=== PATIENT | female | born 1990 | race Caucasian/White ===

== ENCOUNTER 2024-04-26 16:01 | Inpatient (IN) ==
[2024-04-26 17:14] LABS: Appearance Urine Slightly Cloudy (Clear)
[2024-04-26 17:25] LABS: Basophils # (auto) 0.04 K/uL (0.00-0.20); Basophils % (auto) 0.5 %; Eosinophils # (auto) 0.14 K/uL (0.00-0.50); Eosinophils % (auto) 1.9 %; Hematocrit (blood only) 42.4 % (37.0-47.0); Hemoglobin 14.3 g/dl (12.0-16.0); Immature Granulocytes # (auto) 0.02 K/uL (0.01-0.20); Immature Granulocytes % (auto) 0.3 %; Lymphocytes # (auto) 2.39 K/uL (1.20-3.40); Lymphocytes % (auto) 31.7 %; Mean Corpuscular Hemoglobin 27.3 pg (25.0-34.0); Mean Corpuscular Hgb Conc 33.7 g/dL (32.0-36.0); Mean Corpuscular Volume 80.9 fL (80.0-100.0); Mean Platelet Volume 10.4 fL (9.4-12.4); Monocytes # (auto) 0.51 K/uL (0.11-0.59); Monocytes % (auto) 6.8 %; Neutrophils # (auto) 4.44 K/uL (1.40-6.50); Neutrophils % (auto) 58.8 %; Platelet Count 324 K/uL (130-400); RDW Coefficient of Variation 12.9 % (11.5-14.5); RDW Standard Deviation 37.6 fL (36.4-46.3); Red Blood Count 5.24 M/uL (4.20-5.40); White Blood Count 7.54 K/ul (4.8-10.8)
[2024-04-26 17:28] LABS: RBC Urine Automated 0-2 /hpf (0-4); WBC Urine Automated 0-5 /hpf (0-5)
[2024-04-26 17:29] LABS: Bacteria Urine Automated None Seen (Negative); Cast Urine Automated 0-2 /lpf (0-5)
[2024-04-26 17:39] LABS: Albumin Globulin Ratio 1.4 (0.9-2); Albumin Level 4.6 gm/dl (3.4-5.0); BUN Creatinine Ratio 20.5 (10-20); Bilirubin,Total 0.4 mg/dl (0.2-1.0); Calcium 9.2 mg/dl (8.6-10.3); Creatinine Clr Calc Pharmacy 118.2 ml/min; Globulin 3.3 gm/dl (2.5-4.0); Potassium 3.8 mmol/L (3.5-5.1); Total Protein 7.9 gm/dl (6.0-8.3)
[2024-04-26] MEDS: AMPICILLIN/SULBACTAM SOD 3,000 MG/100 ML BAG IV STA (17:57)
[2024-04-26] MEDS ORDERED: ONDANSETRON INJ 2 MG/ML 2 ML VIAL IV PRN (18:00)
[2024-04-26] MEDS ORDERED: POLYETHYLENE (MIRALAX) 17 GM PACK PO PRN (18:00)
--- NOTE | 2024-04-26 18:21 | History & Physical Report ---
Date of Service April 26, 2024 Assessment & Plan (1) UTI (urinary tract infection): Plan This is a 34 year old female with past medical history of OCD, ADHD, umbilical hernia, PTSD who presented to the ED referred by urology for a resistant strand of UTI. #UTI UC from 04/17 + for corynebacterium rigelii, enterococcus faecalis, allosardovia omnicolens, and Morganella morganii CBC/BMP stable. Sensitivities reveal only sensitive to Unasyn vs Doxycycline. Per patient she is unable to have doxycycline due to hx of intracranial HTN. ED discussed w/ pharmacy who recommended Unasyn Discussed w/ urology that Unasyn is able to cover 3 species but doxycycline is the only abx to cover enterococcus. Also discussed that patient does not have confirmed intracranial hypertension. Reached out to Neurology who recommended to treat the UTI w/ doxycycline and no monitoring was necessary. Start Doxycycline, if patient develops any neurological symptoms including headache, changes in vision/hearing please then discontinue abx. Continue IV Unasyn on admission Urology consulted, appreciate recommendations. Will likely have cystoscopy inpatient. #Chronic conditions: Mental health: Buspirone/Guanfacine Hypothyroidism: Levothyroxine Recent TSH 04/18 WNL DVT prophylaxis: encourage ambulation, hold chemical in event of procedure Code: full Case discussed w/ Dr. Sanchez at time of admission. History of Present Illness Primary Care Provider: LANCE Linton This is a 34 year old female with past medical history of OCD, ADHD, umbilical hernia, PTSD who presented to the ED referred by urology for a resistant strand of UTI. The patient was seen and examined this evening. Patient reports that she has had UTI symptoms for the last 2 years. She has followed routinely with urology. She reports that within the last week her symptoms have worsened. She has used Azo to aide with her symptoms. Her biggest symptoms are urinary urgency and burning. She denies any hematuria. She denies any low back pain. She admits to discomfort in her suprapubic region. She denies nausea, vomiting, chest pain, shortness of breath. Denies any lower extremity edema. Scanned urine culture from 04/17 reveals patient grew Corynebacterium riegelii, enterococcus faecalis, allosardovia omnicolens, morganella morganii. The patient has a hx of intracranial HTN and is unable to have doxycycline. While in the ED, patient had CBC/BMP that appeared stable. She was started on Unasyn. Allergies Allergy/AdvReac Type Severity Reaction Status Date / Time adhesive Allergy Intermediate Rash Verified 04/26/24 17:56 nitrofurantoin AdvReac Severe Intracranial Verified 04/26/24 17:56 Hypertension Tetracyclines AdvReac Severe Intracranial Verified 04/26/24 17:56 Hypertension naldixic acid AdvReac Severe Intracranial Uncoded 04/26/24 17:56 Hypertension Home Medications Medication Instructions Recorded Confirmed Type levothyroxine 150 mcg tablet 150 mcg PO QAM 12/19/21 04/26/24 History Medical Marijuana 1 dose inhalation DAILY PRN ptsd 01/07/23 04/26/24 History lactobacillus combination no.4 3 3,000 mmu cells PO QDL 04/16/23 04/26/24 History billion cell capsule (Probiotic) cholecalciferol (vitamin D3) 50 50 mcg PO QDL 10/06/23 04/26/24 History mcg (2,000 unit) capsule fluticasone propionate 50 2 spray intranasal DAILY #16 grams 03/14/24 04/26/24 Rx mcg/actuation nasal spray,suspension ascorbic acid 100 mg-zinc sulfate 1 tab PO DAILY 03/21/24 04/26/24 History 200 mg tablet cranberry 500 mg capsule 500 mg PO DAILY 03/21/24 04/26/24 History hydroxyzine HCl 25 mg tablet 25 mg PO HS PRN anxiety, insomnia 04/07/24 04/26/24 Rx #30 tabs buspirone 10 mg tablet 10 mg PO TID 04/26/24 04/26/24 History elderberry fruit 350 mg capsule 350 mg PO DAILY 04/26/24 04/26/24 History guanfacine 1 mg tablet,extended 1 mg PO HS 04/26/24 04/26/24 History release 24 hr Past Med/Surg History Problem List (Updated 04/27/24 @ 17:22 by Tala Webster MD) Fear of anesthetic Fear associated with healthcare Adjustment disorder with anxiety Generalized anxiety disorder with panic attacks Urinary tract infection (Acute) Bilateral tinnitus Allergy to tetracycline group Enterococcus faecalis infection Pelvic pain (Chronic) Vitamin D deficiency Tinnitus OCD (obsessive compulsive disorder) Attention and concentration deficit Umbilical hernia Post traumatic stress disorder Medical History Medical marijuana use UTI (urinary tract infection) [facility] ER evaluation 03/27/24 for UTI, surgeon's office made aware Kidney stone on left side Restless leg Arthritis Hx of papilledema Hx with idiopathic intracranial hypertension No current issues Idiopathic intracranial hypertension Follows [facility] Neuro Dr. Rodrigues>"in remission" Hypothyroidism GERD (gastroesophageal reflux disease) Duplicated left renal collecting system Follows [facility] Urology Decreased hearing L > R History of asthma Childhood PTSD (post-traumatic stress disorder) Anxiety and depression Surgical History Family history of reaction to anesthesia Mother- "stopped breathing and required tube for short time" during EGD, limited further details H/O umbilical hernia repair (12/06/23) Robotic Assisted Laparoscopic Umbilical Hernia Repair with Mesh Adverse effect of anesthesia Panic attack with anesthesia with lap shamar Hx of cholecystectomy (2022) Hx of cervical biopsy benign [place] teeth extracted History of tonsillectomy Family History Grandfather (Maternal) Lung cancer Cancer Mother Hypertension Stroke Clotting disorder Father ADHD Grandmother (Paternal) COPD (chronic obstructive pulmonary disease) Grandfather (Paternal) Stroke Grandfather (Paternal) No problems noted. Grandmother (Maternal) Stroke Denies family history of Ovarian cancer Prostate cancer Myocardial infarction Breast cancer Colorectal cancer Social History Smoking Status: Never smoker Tobacco Type: Declines Age Started Using Tobacco: 16; packs per day: 0.01; Cigarettes Per Day: 2 cigs q few months (only smokes when drinking); Second Hand Exposure: No; Do You Dip or Chew Tobacco: No; Tobacco Cessation Education Requested by Patient: No Hx Alcohol Use: Yes Alcohol type: beer and wine Alcohol Intake Frequency: Monthly or Less Hx Substance Use: Yes Prescribed Medications: Marijuana Non-Prescribed Medications: Crack / Cocaine and Hallucinogens Last Used Substance: Days (ago) Substance Use Type Other:: medical marijuana Preferred Language: [place] Communication Ability: Effective Visual Impairment: No Limitations Hearing Ability: Normal Boat Ride Operator Required: No Beliefs That Will Affect Care: None marital status: Single Current Living Situation: Significant Other current occupational status: employed 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 How many Children do You have: 0 Other Information That Helps Us Care for You: No Feels Safe at Home: Yes Safety Concerns: Feels Safe At This Time Diet: ideal protein, low carbohydrate and regular Diet Comment: regular caffeine: No during the past year weight has: remained stable Dental Care, Regularly: Yes Physical Activity Frequency: Other Seatbelt Use: always Sunscreen Use: Yes Assistive Devices: None Physical Exam Constitutional: WD/WN, vitals as above Eyes: PERRL, conjunctivae normal, anicteric sclerae Respiratory: normal respiratory effort, lungs clear to auscultation Cardiovascular: RRR, no murmur, no edema Gastrointestinal (Abdomen): normal bowel sounds, soft, nontender, no hepatosplenomegaly negative CVA tenderness Musculoskeletal: moves all extremities Psychiatric: A+Ox3, euthymic affect Results & Data Results & Data Vital Signs (Past 12 Hours) Vital Signs Temp Pulse Resp BP Pulse Ox O2 Del Method 04/26/24 16:31 36.7 C 93 H 20 140/82 98 Room Air Supervising Physician Co-Signing Physician Notes I personally saw and examined the patient. I independently reviewed the labs, EKG, imaging, problem list, medication list, past medical history and family history. I verified all pittman points and agree with Fabiana Green PA-C with the following exceptions and/or additions: 34 year old female presents to the ER with ongoing urine symptoms, urine culture positive as an outpatient. O/E HS RRR, no murmurs, Chest CTAB, Abdo SNT, no CVA tenderness A/P UTI - IV doxycycline per urology recommendation pending cystoscopy PG Care Time/CCT Total # of Minutes Spent Total Time Spent with Patient: Total time spent is greater than 50% in coordination of care (as documented) at patient's floor/unit and/or counseling patient: Coding Level of Care Code 67396 INT INP/OBS CARE MIN Diagnoses UTI (urinary tract infection) N39.0
--- NOTE | 2024-04-26 18:23 | Emergency Department Note ---
History of Present Illness General Chief Complaint: Urinary Symptoms Stated Complaint: REF BY DOC,ANTIBIOTIC,UTI Time Seen by Provider: 04/26/24 16:47 History of Present Illness Provider Complaint: + abnormal lab Returns today for: + called because of abnormal lab/test Description of abnormal result: Positive urine culture. Home Medications Medication Instructions Recorded Confirmed Type levothyroxine 150 mcg tablet 150 mcg PO QAM 12/19/21 04/26/24 History Medical Marijuana 1 dose inhalation DAILY PRN ptsd 01/07/23 04/26/24 History lactobacillus combination no.4 3 3,000 mmu cells PO QDL 04/16/23 04/26/24 History billion cell capsule (Probiotic) cholecalciferol (vitamin D3) 50 50 mcg PO QDL 10/06/23 04/26/24 History mcg (2,000 unit) capsule fluticasone propionate 50 2 spray intranasal DAILY #16 grams 03/14/24 04/26/24 Rx mcg/actuation nasal spray,suspension ascorbic acid 100 mg-zinc sulfate 1 tab PO DAILY 03/21/24 04/26/24 History 200 mg tablet cranberry 500 mg capsule 500 mg PO DAILY 03/21/24 04/26/24 History hydroxyzine HCl 25 mg tablet 25 mg PO HS PRN anxiety, insomnia 04/07/24 04/26/24 Rx #30 tabs buspirone 10 mg tablet 10 mg PO TID 04/26/24 04/26/24 History elderberry fruit 350 mg capsule 350 mg PO DAILY 04/26/24 04/26/24 History guanfacine 1 mg tablet,extended 1 mg PO HS 04/26/24 04/26/24 History release 24 hr Allergies Allergy/AdvReac Type Severity Reaction Status Date / Time adhesive Allergy Intermediate Rash Verified 04/26/24 17:56 nitrofurantoin AdvReac Severe Intracranial Verified 04/26/24 17:56 Hypertension Tetracyclines AdvReac Severe Intracranial Verified 04/26/24 17:56 Hypertension naldixic acid AdvReac Severe Intracranial Uncoded 04/26/24 17:56 Hypertension Past Med/Surg History Problem List (Updated 04/26/24 @ 18:31 by Sandeep Prasad MD) Urinary tract infection (Acute) Bilateral tinnitus Allergy to tetracycline group Enterococcus faecalis infection Pelvic pain (Chronic) Vitamin D deficiency Tinnitus OCD (obsessive compulsive disorder) Attention and concentration deficit Umbilical hernia Post traumatic stress disorder Medical History Medical marijuana use UTI (urinary tract infection) [facility] ER evaluation 03/27/24 for UTI, surgeon's office made aware Kidney stone on left side Restless leg Arthritis Hx of papilledema Hx with idiopathic intracranial hypertension No current issues Idiopathic intracranial hypertension Follows [facility] Neuro Dr. Rodrigues>"in remission" Hypothyroidism GERD (gastroesophageal reflux disease) Duplicated left renal collecting system Follows [facility] Urology Decreased hearing L > R History of asthma Childhood PTSD (post-traumatic stress disorder) Anxiety and depression Surgical History Family history of reaction to anesthesia Mother- "stopped breathing and required tube for short time" during EGD, limited further details H/O umbilical hernia repair (12/06/23) Robotic Assisted Laparoscopic Umbilical Hernia Repair with Mesh Adverse effect of anesthesia Panic attack with anesthesia with lap shamar Hx of cholecystectomy (2022) Hx of cervical biopsy benign [place] teeth extracted History of tonsillectomy Family History Grandfather (Maternal) Lung cancer Cancer Mother Hypertension Stroke Clotting disorder Father ADHD Grandmother (Paternal) COPD (chronic obstructive pulmonary disease) Grandfather (Paternal) Stroke Grandfather (Paternal) No problems noted. Grandmother (Maternal) Stroke Denies family history of Ovarian cancer Prostate cancer Myocardial infarction Breast cancer Colorectal cancer Social History Smoking Status: Current some day smoker Tobacco Type: Cigarettes Age Started Using Tobacco: 16; packs per day: 0.01; Cigarettes Per Day: 2 cigs q few months (only smokes when drinking); Second Hand Exposure: No; Do You Dip or Chew Tobacco: No; Hx Alcohol Use: Yes Alcohol type: beer, wine and hard liquor Alcohol Intake Frequency: Monthly or Less Preferred Language: Uzbek Communication Ability: Effective Visual Impairment: No Limitations Hearing Ability: Normal Bag Machine Helper Required: No Beliefs That Will Affect Care: None marital status: Single Current Living Situation: Significant Other current occupational status: employed 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 How many Children do You have: 0 Feels Safe at Home: Yes Diet: ideal protein, low carbohydrate and regular Diet Comment: regular caffeine: No during the past year weight has: remained stable Dental Care, Regularly: Yes Physical Activity Frequency: Other Seatbelt Use: always Sunscreen Use: Yes Assistive Devices: Glasses Physical Exam 2 Vital Signs: Vital Signs - 24 hr 04/26/24 16:31 Temperature 36.7 C Temperature Source Temporal Artery Sc an Pulse Rate 93 H Respiratory Rate 20 Blood Pressure 140/82 Blood Pressure Anh n 101 Pulse Oximetry 98 Oxygen Delivery Me thod Room Air Sepsis Recent Feve r Within 48 Hours No Sepsis New/Unexpla ined Change in Men tanna Status N/A Sepsis Action Take n by Nursing No Action Required Physical Exam: Physical Exam GENERAL: oriented to person, place, and time. appears well-developed and well- nourished. HENT: Exam performed. - Head: Normocephalic and atraumatic. EYES: Conjunctivae and EOM are normal. Right eye exhibits no discharge. Left eye exhibits no discharge. No scleral icterus. NECK: Normal range of motion. Neck supple. No JVD present. CV: Normal rate, regular rhythm, normal heart sounds and intact distal pulses. There is no peripheral edema. Palpable radial pulses bue. PULM/CHEST: Effort normal and breath sounds normal. No respiratory distress. No stridor. no wheezes. no rales. ABD: The abdomen is soft. There is no tenderness. NEURO: Motor and sensation grossly intact. SKIN: Skin is warm and dry. He is not diaphoretic. PSYCH: normal mood and affect. Behavior is normal. Judgment and thought content normal. Course Course 164: The patient was evaluated in room D1A. A complete history and physical exam was performed Administered Medications Discontinued Medications Ampicillin Sodium/Sulbactam Sodium (Unasyn) 3,000 mg in 100 mls @ 200 mls/hr IV NOW STA Stop: 04/26/24 17:52 Last Admin: 04/26/24 17:57 Dose: 200 mls/hr Documented By: JOHN Medical Decision Making Laboratory Data Attestation: I reviewed the patient's lab results. 04/26/24 16:59 04/26/24 16:59 Lab Results 04/26/24 04/26/24 Range/Units 16:43 16:59 WBC 7.54 (4.8-10.8) K/ul RBC 5.24 (4.20-5.40) M/uL Hgb 14.3 (12.0-16.0) g/dl Hct 42.4 (37.0-47.0) % MCV 80.9 (80.0-100.0) fL MCH 27.3 (25.0-34.0) pg MCHC 33.7 (32.0-36.0) g/dL RDW Std Deviation 37.6 (36.4-46.3) fL RDW Coeff of Omi 12.9 (11.5-14.5) % Plt Count 324 (130-400) K/uL MPV 10.4 (9.4-12.4) fL Immature Gran % (Auto) 0.3 % Neut % (Auto) 58.8 % Lymph % (Auto) 31.7 % White % (Auto) 6.8 % Eos % (Auto) 1.9 % Baso % (Auto) 0.5 % Neut # (Auto) 4.44 (1.40-6.50) K/uL Lymph # (Auto) 2.39 (1.20-3.40) K/uL White # (Auto) 0.51 (0.11-0.59) K/uL Eos # (Auto) 0.14 (0.00-0.50) K/uL Baso # (Auto) 0.04 (0.00-0.20) K/uL Immature Gran # (Auto) 0.02 (0.01-0.20) K/uL Sodium 138 (136-145) mmol/L Potassium 3.8 (3.5-5.1) mmol/L Chloride 106 (98-107) mmol/L Carbon Dioxide 26 (21-32) mmol/L Anion Gap 6 (3-11) BUN 17 (6-23) mg/dl Creatinine 0.83 (0.6-1.2) mg/dl Est Cr Clr Drug Dosing 118.2 ml/min eGFR 96.00 BUN/Creatinine Ratio 20.5 H (10-20) Glucose 91 (70-99(Fasting)) mg/dl Calcium 9.2 (8.6-10.3) mg/dl Total Bilirubin 0.4 (0.2-1.0) mg/dl AST 15 (13-39) U/L ALT 13 (7-52) U/L Alkaline Phosphatase 75 (34-104) U/L Total Protein 7.9 (6.0-8.3) gm/dl Albumin 4.6 (3.4-5.0) gm/dl Globulin 3.3 (2.5-4.0) gm/dl Albumin/Globulin Ratio 1.4 (0.9-2) Urine Color See Comment Urine Appearance Slightly Cloudy (Clear) Urine pH Not Reportable Ur Specific [place] 1.010 (1.000-1.030) Urine Protein Not Reportable Urine Glucose (UA) Not Reportable Urine Ketones Not Reportable Urine Blood Not Reportable Urine Nitrite Not Reportable Urine Bilirubin Not Reportable Urine Urobilinogen Not Reportable Ur Leukocyte Esterase Not Reportable Urine WBC (Auto) 0-5 (0-5) /hpf Urine RBC (Auto) 0-2 (0-4) /hpf U Hyaline Cast (Auto) 0-2 (0-5) /lpf U Epithel Cells (Auto) 3-5 (0-5) /lpf Urine Bacteria (Auto) None Seen (Negative) MDM Narrative Vital signs stable. There is scant urine culture from guidance UTI from April 19 which grew out Corynebacterium riegelli, enterococcus faecalis, alloscardovia, morganellia, and is only susceptible to Unasyn or doxycycline. Patient states she cannot take doxycycline secondary to her intracranial hypertension and was told to come here to be admitted by the urology team. Patient will be given Unasyn and admitted to the medicine team with urology on consult. Impression & Plan Urinary tract infection Discharge Plan Visit Data Chief Complaint: Urinary Symptoms Stated Complaint: REF BY DOC,ANTIBIOTIC,UTI ED Provider: Sandeep Prasad Discharge Problem: Urinary tract infection Patient Disposition: Admitted As Inpatient Forms Stand Alone Forms: My [facility] Prescriptions Prescriptions: No Action fluticasone propionate 50 mcg/actuation spray,suspension 2 spray intranasal DAILY Qty: 16 2RF Rx Instructions: administer into each nostril hydroxyzine HCl 25 mg tablet 25 mg PO HS PRN (Reason: anxiety, insomnia) Qty: 30 0RF Probiotic 3 billion cell capsule 3,000 mmu cells PO QDL Rx Instructions: administer with a meal cholecalciferol (vitamin D3) 50 mcg (2,000 unit) capsule 50 mcg PO QDL levothyroxine 150 mcg tablet 150 mcg PO QAM Medical Marijuana 1 dose inhalation DAILY PRN (Reason: ptsd) Patient Comments: "Dosed throughout the day" Rx Instructions: Vape Vitamin C with Zinc 100-200 mg Tablet 1 tab PO DAILY cranberry 500 mg Capsule 500 mg PO DAILY Rx Instructions: administer with meals buspirone 10 mg tablet 10 mg PO TID guanfacine 1 mg tablet extended release 24 hr 1 mg PO HS elderberry fruit 350 mg Capsule 350 mg PO DAILY Referrals Referrals: Desmond Rush CRNP [Primary Care Provider] - Discharge Problem: Urinary tract infection Qualifiers: Urinary tract infection type: site unspecified
[2024-04-26] MEDS ORDERED: hydrOXYzine HCl 25 MG TAB PO PRN (19:23)
[2024-04-26] MEDS: DOXYCYCLINE HYCLATE 100 MG in DEXTROSE 5% MINI-B 100 ML IV STA (19:23)
[2024-04-26] MEDS ORDERED: AMPICILLIN/SULBACTAM SOD 3,000 MG/100 ML BAG IV ONE (20:00)
--- NOTE | 2024-04-26 20:10 | Urology Consultation ---
Date of Consultation April 26, 2024 Assessment & Plan (1) Urinary tract infection: The patient has been admitted on the hospitalist service. From a urologic perspective we recommend the following: Patient has been initiated on antibiotics form of Unasyn and doxycycline which should continue Due to the patient's neurologic issues noted in the history of present illness should be monitored as an inpatient was antibiotics are initiated Consideration for performing a cystoscopy while the patient is an inpatient is underway. Dr. Westbrook is noted that he may perform the said procedure on 04/28/2024. If he does plan on going ahead on that they will make the patient n.p.o. after midnight 1 04/27/2024 Additional recommendations with forthcoming based on her clinical course as unfolds History of Present Illness Reason for Consultation: Urinary tract infection Attending Physician: Nikolay Sanchez MD History of Present Illness This is a 34-year-old female who requires admission to [facility] for urinary tract infection with multiple resistances. Patient says that she has been suffering from urinary tract infections since February of this year. Patient says that she experiences lower abdominal/bladder pressure with urinary frequency and some dysuria. She also notes some intermittent left flank pain. She specifically denies any fevers, shakes, or chills. She denies any nausea or vomiting. She denies any hematuria. To the best of her knowledge she has not passed any kidney stones. Because of her urinary tract infection she has tried 3 antibiotics but still has the above-noted symptoms. Since arrival to the hospital labs have been ordered which independent reviewed. CBC revealed white blood cell count, hemoglobin, hematocrit, and platelet count were all normal. Chemistry profile showed sodium and potassium as well as the BUN and creatinine were normal. The patient reportedly had a urine culture from 04/17/2024 which was positive for Enterococcus faecalis, Morganella Morgagni, allosardovia omnicolens, and Corynebacterium. Sensitivities showed that this organism was sensitive to Unasyn and doxycycline. Patient does report a history of idiopathic intracranial hypertension (she said that this is in remission) but inpatient monitoring is required with the initiation of doxycycline as it can reportedly exacerbate this condition. The patient does note that there is been some consideration of performing a cystoscopy to search for anatomical abnormalities that could explain her urinary tract infections. For this reason urology was consulted. At the time of my interview she was resting comfortably in bed and she is in no distress. Allergies Allergy/AdvReac Type Severity Reaction Status Date / Time adhesive Allergy Intermediate Rash Verified 04/26/24 17:56 nitrofurantoin AdvReac Severe Intracranial Verified 04/26/24 17:56 Hypertension Tetracyclines AdvReac Severe Intracranial Verified 04/26/24 17:56 Hypertension naldixic acid AdvReac Severe Intracranial Uncoded 04/26/24 17:56 Hypertension Home Medications Medication Instructions Recorded Confirmed Type levothyroxine 150 mcg tablet 150 mcg PO QAM 12/19/21 04/26/24 History Medical Marijuana 1 dose inhalation DAILY PRN ptsd 01/07/23 04/26/24 History lactobacillus combination no.4 3 3,000 mmu cells PO QDL 04/16/23 04/26/24 History billion cell capsule (Probiotic) cholecalciferol (vitamin D3) 50 50 mcg PO QDL 10/06/23 04/26/24 History mcg (2,000 unit) capsule fluticasone propionate 50 2 spray intranasal DAILY #16 grams 03/14/24 04/26/24 Rx mcg/actuation nasal spray,suspension ascorbic acid 100 mg-zinc sulfate 1 tab PO DAILY 03/21/24 04/26/24 History 200 mg tablet cranberry 500 mg capsule 500 mg PO DAILY 03/21/24 04/26/24 History hydroxyzine HCl 25 mg tablet 25 mg PO HS PRN anxiety, insomnia 04/07/24 04/26/24 Rx #30 tabs buspirone 10 mg tablet 10 mg PO TID 04/26/24 04/26/24 History elderberry fruit 350 mg capsule 350 mg PO DAILY 04/26/24 04/26/24 History guanfacine 1 mg tablet,extended 1 mg PO HS 04/26/24 04/26/24 History release 24 hr Patient History Medical History Medical marijuana use UTI (urinary tract infection) [facility] ER evaluation 03/27/24 for UTI, surgeon's office made aware Kidney stone on left side Restless leg Arthritis Hx of papilledema Hx with idiopathic intracranial hypertension No current issues Idiopathic intracranial hypertension Follows [facility] Neuro Dr. Rodrigues>"in remission" Hypothyroidism GERD (gastroesophageal reflux disease) Duplicated left renal collecting system Follows [facility] Decreased hearing L > R History of asthma Childhood PTSD (post-traumatic stress disorder) Anxiety and depression Surgical History Family history of reaction to anesthesia Mother- "stopped breathing and required tube for short time" during EGD, limited further details H/O umbilical hernia repair (12/06/23) Robotic Assisted Laparoscopic Umbilical Hernia Repair with Mesh Adverse effect of anesthesia Panic attack with anesthesia with lap shamar Hx of cholecystectomy (2022) Hx of cervical biopsy benign [place] teeth extracted History of tonsillectomy Family History Grandfather (Maternal) Lung cancer Cancer Mother Hypertension Stroke Clotting disorder Father ADHD Grandmother (Paternal) COPD (chronic obstructive pulmonary disease) Grandfather (Paternal) Stroke Grandfather (Paternal) No problems noted. Grandmother (Maternal) Stroke Denies family history of Ovarian cancer Prostate cancer Myocardial infarction Breast cancer Colorectal cancer Social History Smoking Status: Current some day smoker Tobacco Type: Cigarettes Age Started Using Tobacco: 16; packs per day: 0.01; Cigarettes Per Day: 2 cigs q few months (only smokes when drinking); Second Hand Exposure: No; Do You Dip or Chew Tobacco: No; Hx Alcohol Use: Yes Alcohol type: beer, wine and hard liquor Alcohol Intake Frequency: Monthly or Less Preferred Language: Cymro Communication Ability: Effective Visual Impairment: No Limitations Hearing Ability: Normal Mixed [employer]rop [employer] 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 Worker Required: No Beliefs That Will Affect Care: None marital status: Single Current Living Situation: Significant Other current occupational status: employed 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 How many Children do You have: 0 Feels Safe at Home: Yes Diet: ideal protein, low carbohydrate and regular Diet Comment: regular caffeine: No during the past year weight has: remained stable Dental Care, Regularly: Yes Physical Activity Frequency: Other Seatbelt Use: always Sunscreen Use: Yes Assistive Devices: Glasses Review of Systems Review of Systems: All systems reviewed & are unremarkable except as noted in HPI & below Physical Exam Constitutional: WD/WN, vitals as above Eyes: Wears glasses ENMT: Ears: no hearing impairment and no external ear abnormality Mouth: no oropharynx abnormality Neck: trachea midline Respiratory: normal respiratory effort; no respiratory distress and no labored breathing Cardiovascular: Rate/Rhythm: regular rate and regular rhythm Gastrointestinal (Abdomen): Soft and nontender to palpation. There is no rigidity. No rebound tenderness or guarding. Musculoskeletal: No calf tenderness Skin: no rashes Neurologic: moves all extremities Psychiatric: A+Ox3, euthymic affect Genitourinary: No CVA tenderness with percussion bilaterally Results & Data Vital Signs (Past 12 Hours) Vital Signs Temp Pulse Pulse Resp BP BP Pulse Ox 04/26/24 19:45 78 17 135/76 96 04/26/24 19:22 72 04/26/24 19:15 65 18 132/78 100 04/26/24 19:09 88 17 132/78 96 04/26/24 16:31 36.7 C 93 H 20 140/82 98 O2 Del Method 04/26/24 19:45 Room Air 04/26/24 19:22 04/26/24 19:15 Room Air 04/26/24 19:09 Room Air 04/26/24 16:31 Room Air PG Care Time/CCT Total # of Minutes Spent Total Time Spent with Patient: Total time spent is greater than 50% in coordination of care (as documented) at patient's floor/unit and/or counseling patient: Coding Level of Care Code 21476 IN/OBS CONSULT LVL 5,80M Diagnoses Urinary tract infection N39.0 Urinary tract infection type: site unspecified (1) Urinary tract infection Urinary tract infection type: site unspecified
[2024-04-26] MEDS: busPIRone 5 MG TAB PO SCH (20:48)
[2024-04-27] MEDS: AMPICILLIN/SULBACTAM SOD 3,000 MG/100 ML BAG IV SCH (00:24)
[2024-04-27] MEDS ORDERED: AMPICILLIN/SULBACTAM SOD 3,000 MG/100 ML BAG IV SCH (02:00)
[2024-04-27] MEDS: KETOROLAC TROMETHAMINE 15 MG/ML VIAL IV PRN (05:27)
[2024-04-27] MEDS: DOXYCYCLINE HYCLATE 100 MG in DEXTROSE 5% MINI-B 100 ML IV SCH (07:32)
[2024-04-27] MEDS: LEVOTHYROXINE SODIUM 150 MCG TABLET PO SCH (07:55)
--- NOTE | 2024-04-27 08:41 | Urology Progress Note ---
Date of Service April 27, 2024 Assessment & Plan (1) Urinary tract infection: (2) Enterococcus faecalis infection: Plan: Follow-up of UTI Outpatient PCR urine culture with resistant Enterococcus and other organisms Patient on Unasyn and Doxycycline per sensitivity data She remains afebrile and hemodynamically stable Plan for cystoscopy tomorrow in OR with Dr. Westbrook as previously discussed Continue supportive care, antibiotics, and monitoring Will make NPO at midnight for procedure will follow Admission and Anticipated Discharge Date Admission Date: April 26, 2024 Subjective Patient awake and resting in bed. Currently feeling comfortable. Reports she had significant left pelvic and flank pain earlier. She had dose of Ketorolac with relief. Continues to have dysuria. No fever or chills. Review of Systems Constitutional: as per Subjective / HPI Genitourinary: as per Subjective / HPI Physical Exam Constitutional: well developed and well nourished; no acute distress Respiratory: normal respiratory effort; no respiratory distress and no labored breathing Gastrointestinal (Abdomen): Inspection/Auscultation: abdomen normal to inspection Musculoskeletal: Head/Neck/Chest: normocephalic Neurologic: moves all extremities and awake Psychiatric: Orientation: alert and oriented x 3 Results & Data Vital Signs (Past 12 Hours) Vital Signs Temp Pulse Resp BP Pulse Ox O2 Del Method 04/27/24 07:30 36.4 C L 74 18 137/92 100 Room Air PG Care Time/CCT Total # of Minutes Spent Total Time Spent with Patient: Total time spent is greater than 50% in coordination of care (as documented) at patient's floor/unit and/or counseling patient: Coding Level of Care Code 33527 SUB INP/OBS CARE 03/18MIN Diagnoses Urinary tract infection N39.0 Urinary tract infection type: site unspecified Enterococcus faecalis infection A49.8 (1) Urinary tract infection Urinary tract infection type: site unspecified
[2024-04-27] MEDS ORDERED: Nursing to Pharmacy Communication SCH (09:30)
[2024-04-27] MEDS: FLUTICASONE PROPIONATE NA SPR 16 GM BTL NAE SCH ×2 (09:53→21:31)
--- NOTE | 2024-04-27 10:18 | Hospitalist Progress Note ---
Date of Service April 27, 2024 Assessment & Plan (1) UTI (urinary tract infection): Plan This is a 34 year old female with past medical history of OCD, ADHD, umbilical hernia, PTSD who presented to the ED referred by urology for a resistant strand of UTI. #UTI UC from 04/17 + for corynebacterium rigelii, enterococcus faecalis, allosardovia omnicolens, and Morganella morganii CBC/BMP stable. Continue IV Unasyn and IV doxycycline. Continue to monitor for MARIEE on doxy given hx of intracranial HTN - patient has been fine thus far Urology consulted - recommending IV abx & cystoscopy 04/28 Toradol/Tylenol prn for pain or fever. #Mental health Patient reports not being able to receive Guanfacine 04/26, unclear as to why. Discussed w/ nurse to communicate patient to receive this medication tonight. Psych consulted/reached out to Liaison, appreciate recs Continue Buspirone & Guanfacine as scheduled. Ativan/hydroxyzine prn if needed. #Chronic conditions: Hypothyroidism: Levothyroxine Recent TSH 04/18 WNL DVT prophylaxis: encourage ambulation, hold chemical in event of procedure Code: full Discussed w/ urology 04/27 that they highly recommend patient remain inpatient for IV doxy, monitoring, and cystoscopy on 04/28. Patient agreeable to stay after hearing those recommendations. Admission and Anticipated Discharge Date Admission Date: April 26, 2024 Subjective Patient seen and examined this morning. patient reports that she is very upset today. Reports she did not receive her Guanfacine last night prior to bed. Reports she uses this medication for her ADHD, Anxiety, insomnia. Reports she did not sleep well. She does not want Ativan to help with her mental health symptoms. She reports that she is having spiraling thoughts and would like to leave the hospital. She did report she had some suprapubic pain and did require a dose of toradol. She reports she is anxi ous she is going to get a headache while on doxycycline but has not had any headache thus far. denies n/v. Discussed w/ urology that there recommendations are she stay in the hospital for IV doxycycline & get a cystoscopy tomorrow in the OR. Discussed this with the patient. She was tearful as she really would prefer to go home but she is agreeable to stay. Discussed w/ her that will ensure she gets her Guanfacine as scheduled prior to bed this evening. Patient also requesting she be evaluated by psych. Consult placed & reached out to Psych liasion Physical Exam Constitutional: WD/WN, vitals as above Eyes: PERRL, conjunctivae normal, anicteric sclerae Respiratory: breathing unlabored Cardiovascular: well perfused Psychiatric: tearful, anxious Results & Data Results & Data Vital Signs (Past 12 Hours) Vital Signs Temp Pulse Resp BP Pulse Ox O2 Del Method 04/27/24 07:30 36.4 C L 74 18 137/92 100 Room Air 04/27/24 07:25 Room Air PG Care Time/CCT Total # of Minutes Spent Total Time Spent with Patient: Total time spent is greater than 50% in coordination of care (as documented) at patient's floor/unit and/or counseling patient: Coding Level of Care Code 72466 SUB INP/OBS CARE 3/50MIN Diagnoses UTI (urinary tract infection) N39.0
[2024-04-27] MEDS: LORazepam 1 MG TAB PO PRN (10:36)
--- NOTE | 2024-04-27 12:41 | Psychiatric Consultation ---
Date of Consultation April 27, 2024 Impression / Recommendations Impression Diagnostically consistent with adjustment disorder with anxiety in context of having to be hospitalized for urinary issues and anticipatory anxiety about upcoming cystoscopy procedure. Acute risk of self-harm is low as denies SI, getting relief from panic attack symptoms from ativan prn, has support of partner. Psychoeducation, validating and discussion of coping skills and distraction strategies reviewed which she found beneficial. Overall, I spent a total of 60 minutes with this case including review of chart records, review of labwork, direct evaluation of the patient at bedside, counseling the patient, discussion of the patient with the Nurse and with the hospitalist provider, discussion with the psychiatric liason during clinical rounds and documentation in the electronic health record. (1) Urinary tract infection: Urinary tract infection type: site unspecified (2) OCD (obsessive compulsive disorder): (3) Generalized anxiety disorder with panic attacks: (4) Adjustment disorder with anxiety: (5) Fear associated with healthcare: (6) Fear of anesthetic: Plan -Agree with use of ativan 1mg po q6h prn for anxiety/panic attacks given difficulty being in the hospital and anticipatory anxiety about urological procedure; could trial if Klonopin if longer duration of action needed -Continue prior to admission medications: Buspar 10mg TID and Guanfacine ER 1mg HS as ordered -Discussed using other coping skills including heating pads, ice pack, fidget items, stress balls, distraction to help cope with situational anxiety and anticipatory fears about anesthesia with procedure -Consider use of topical numbing cream prior to IV placement or other interventions to ease pain when feasible -Ongoing reassurance and support seems to offer significant reduce in distress -Tomorrow AM: Consider early IV placement/ anxiolytic administration if the patient experiences pre-procedure panic. -Restart medications post-procedure as appropriate. Psych History Chief Complaint "[]". History of Present Illness She presents for psychiatric consultation due to significant anxiety and panic symptoms, exacerbated by her current hospitalization for a urinary tract infection (UTI) and upcoming cystoscopy procedure. Her anxiety is heightened by miscommunications with hospital staff, difficulties adjusting to the hospital environment, and concerns about medication management. She expresses distress about staying another night in the hospital, particularly after an incident where her ADHD medication (guanfacine) was mistakenly withheld. She is anxious about the cystoscopy procedure scheduled for tomorrow and fears potential complications from the medications she is receiving. She reports a history of panic attack upon waking from a previous surgery, which contributes to her current anxiety. She has been dealing with urinary issues for an extended period. While this procedure represents a step towards obtaining answers, she struggles to maintain hope it will give any additional answers or help with her treatment. She endorses anxiety symptoms including excessive worry about her medical condition and treatment, panic symptoms, and heightened distress in the hospital environment. Her anxiety is impacting her ability to cope with the hospital stay and upcoming procedure. She reports sensory issues that make IV placement challenging. She uses fidget items as a coping mechanism during medical procedures. She is currently prescribed BuSpar 10 mg three times daily and guanfacine extended-release 1 mg at bedtime. Vistaril is prescribed as needed but she reports it worsens her restless legs. Ativan has been prescribed for panic attacks, which she finds effective. Allergies Allergy/AdvReac Type Severity Reaction Status Date / Time adhesive Allergy Intermediate Rash Verified 04/26/24 17:56 nitrofurantoin AdvReac Severe Intracranial Verified 04/26/24 17:56 Hypertension Tetracyclines AdvReac Severe Intracranial Verified 04/26/24 17:56 Hypertension naldixic acid AdvReac Severe Intracranial Uncoded 04/26/24 17:56 Hypertension Home Medications Medication Instructions Recorded Confirmed Type levothyroxine 150 mcg tablet 150 mcg PO QAM 12/19/21 04/26/24 History Medical Marijuana 1 dose inhalation DAILY PRN ptsd 01/07/23 04/26/24 History lactobacillus combination no.4 3 3,000 mmu cells PO QDL 04/16/23 04/26/24 History billion cell capsule (Probiotic) cholecalciferol (vitamin D3) 50 50 mcg PO QDL 10/06/23 04/26/24 History mcg (2,000 unit) capsule fluticasone propionate 50 2 spray intranasal DAILY #16 grams 03/14/24 04/26/24 Rx mcg/actuation nasal spray,suspension ascorbic acid 100 mg-zinc sulfate 1 tab PO DAILY 03/21/24 04/26/24 History 200 mg tablet cranberry 500 mg capsule 500 mg PO DAILY 03/21/24 04/26/24 History hydroxyzine HCl 25 mg tablet 25 mg PO HS PRN anxiety, insomnia 04/07/24 04/26/24 Rx #30 tabs buspirone 10 mg tablet 10 mg PO TID 04/26/24 04/26/24 History elderberry fruit 350 mg capsule 350 mg PO DAILY 04/26/24 04/26/24 History guanfacine 1 mg tablet,extended 1 mg PO HS 04/26/24 04/26/24 History release 24 hr Patient History Medical History Medical marijuana use UTI (urinary tract infection) [facility] ER evaluation 03/27/24 for UTI, surgeon's office made aware Kidney stone on left side Restless leg Arthritis Hx of papilledema Hx with idiopathic intracranial hypertension No current issues Idiopathic intracranial hypertension Follows [facility] [facility] Neuro Dr. Rodrigues>"in remission" Hypothyroidism GERD (gastroesophageal reflux disease) Duplicated left renal collecting system Follows [facility] Urology Decreased hearing L > R History of asthma Childhood PTSD (post-traumatic stress disorder) Anxiety and depression Surgical History Family history of reaction to anesthesia Mother- "stopped breathing and required tube for short time" during EGD, limited further details H/O umbilical hernia repair (12/06/23) Robotic Assisted Laparoscopic Umbilical Hernia Repair with Mesh Adverse effect of anesthesia Panic attack with anesthesia with lap shamar Hx of cholecystectomy (2022) Hx of cervical biopsy benign [place] teeth extracted History of tonsillectomy Family History Grandfather (Maternal) Lung cancer Cancer Mother Hypertension Stroke Clotting disorder Father ADHD Grandmother (Paternal) COPD (chronic obstructive pulmonary disease) Grandfather (Paternal) Stroke Grandfather (Paternal) No problems noted. Grandmother (Maternal) Stroke Denies family history of Ovarian cancer Prostate cancer Myocardial infarction Breast cancer Colorectal cancer Social History Smoking Status: Never smoker Tobacco Type: Declines Age Started Using Tobacco: 16; packs per day: 0.01; Cigarettes Per Day: 2 cigs q few months (only smokes when drinking); Second Hand Exposure: No; Do You Dip or Chew Tobacco: No; Tobacco Cessation Education Requested by Patient: No Hx Alcohol Use: Yes Alcohol type: beer and wine Alcohol Intake Frequency: Monthly or Less Hx Substance Use: Yes Prescribed Medications: Marijuana Non-Prescribed Medications: Crack / Cocaine and Hallucinogens Last Used Substance: Days (ago) Substance Use Type Other:: medical marijuana Preferred Language: Citizen Of [place] Communication Ability: Effective Visual Impairment: No Limitations Hearing Ability: Normal Disaster Recovery Specialist Required: No Beliefs That Will Affect Care: None marital status: Single Current Living Situation: Significant Other current occupational status: employed 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 How many Children do You have: 0 Other Information That Helps Us Care for You: No Feels Safe at Home: Yes Safety Concerns: Feels Safe At This Time Diet: ideal protein, low carbohydrate and regular Diet Comment: regular caffeine: No during the past year weight has: remained stable Dental Care, Regularly: Yes Physical Activity Frequency: Other Seatbelt Use: always Sunscreen Use: Yes Assistive Devices: None Physical Exam Psychiatric: Orientation: alert, oriented x 3 and cooperative Eye Contact: good eye contact Motor Behavior: no abnormal motor movements Speech: normal rate/rhythm/volume of speech Affect: + tearful affect Mood: + anxious mood Thought Process: goal directed thought process Thought Content: + preoccupation Suicidal Thoughts: denies suicidal thoughts Homicidal Thoughts: denies homicidal thoughts Hallucinations: no auditory hallucinations and no visual hallucinations Insight: + fair insight Otis gment: + fair judgement Vital Signs (Past 24 Hours): Last Vital Signs Temp 36.4 C L 04/27/24 07:30 Pulse 66 04/27/24 10:38 Resp 18 04/27/24 07:30 BP 126/85 04/27/24 10:38 Pulse Ox 100 04/27/24 07:30 O2 Del Method Room Air 04/27/24 07:30 Results & Data (PSY) Medications Administered Buspirone HCl (Buspirone 5 Mg Tab) 10 mg PO TID LYNDSAY Stop: 05/26/24 20:59 Last Admin: 04/27/24 09:24 Dose: 10 mg Documented By: Admin: 04/26/24 20:48 Dose: 10 mg Documented By: BLANCA Doxycycline Hyclate 100 mg/ (Dextrose) 100 mls @ 50 mls/hr IV Q12H LYNDSAY Stop: 05/02/24 07:29 Last Infusion: 04/27/24 09:45 Dose: Infused Documented By: Admin: 04/27/24 07:32 Dose: 50 mls/hr Documented By: DIMPLE Ampicillin Sodium/Sulbactam Sodium (Unasyn) 3,000 mg in 100 mls @ 200 mls/hr IV Q6H LYNDSAY Stop: 05/02/24 00:00 Last Infusion: 04/27/24 06:09 Dose: Infused Documented By: Admin: 04/27/24 05:34 Dose: 200 mls/hr Documented By: Infusion: 04/27/24 01:09 Dose: Infused Documented By: Admin: 04/27/24 00:24 Dose: 200 mls/hr Documented By: BLANCA Ketorolac Tromethamine (Ketorolac Tromethamine 15 Mg/Ml Vial) 15 mg IV Q6H PRN PRN Reason: Pain Stop: 05/02/24 04:45 Last Admin: 04/27/24 05:27 Dose: 15 mg Documented By: BLANCA Levothyroxine Sodium (Levothyroxine Sodium 150 Mcg Tablet) 150 mcg PO QAM LYNDSAY Stop: 05/27/24 08:59 Last Admin: 04/27/24 07:55 Dose: 150 mcg Documented By: DIMPLE Lorazepam (Lorazepam 1 Mg Tab) 1 mg PO Q6H PRN PRN Reason: panic attack Stop: 05/27/24 04:42 Last Admin: 04/27/24 10:36 Dose: 1 mg Documented By: DIMPLE Coding Level of Care Code 66783 IN/OBS CONSULT LVL 4,60M Diagnoses Urinary tract infection N39.0 Urinary tract infection type: site unspecified OCD (obsessive compulsive disorder) F42.9 Generalized anxiety disorder with panic attacks F41.1; F41.0 Adjustment disorder with anxiety F43.22 Fear associated with healthcare F40.232 Fear of anesthetic F40.232
[2024-04-28] MEDS: ACETAMINOPHEN 325 MG TAB PO PRN (00:31)
[2024-04-28] MEDS ORDERED: fentaNYL citrate PF 100 MCG/2 ML VIAL ONE (09:25)
[2024-04-28] MEDS ORDERED: MIDAZOLAM HCL 1 MG/ML 2ML VIAL ONE ×2 (09:25→09:45)
[2024-04-28] MEDS ORDERED: fentaNYL citrate PF 100 MCG/2 ML VIAL IV PRN (09:26)
[2024-04-28] MEDS ORDERED: ATROPINE SULFATE 0.1 MG/ML 10ML SYR IV PRN (09:26)
[2024-04-28] MEDS ORDERED: ePHEDrine sulfate 50 MG/ML AMP IV PRN (09:26)
[2024-04-28] MEDS ORDERED: ONDANSETRON INJ 2 MG/ML 2 ML VIAL IV PRN (09:26)
[2024-04-28] MEDS ORDERED: PROPOFOL IV EMULSION 10 MG/ML 20 ML VIAL IV ONE (09:27)
[2024-04-28] MEDS ORDERED: DEXAMETHASONE SOD INJ 4 MG/ML VIAL ONE (09:27)
[2024-04-28] MEDS ORDERED: DexMEDEtomidine HCL IV 100 MCG/ML VIAL IV ONE (09:27)
[2024-04-28] MEDS ORDERED: LIDOCAINE 2% 2 ML VIAL/AMP(20MG/ML) INFIL ONE (09:27)
[2024-04-28] MEDS ORDERED: ONDANSETRON INJ 2 MG/ML 2 ML VIAL ONE (09:27)
[2024-04-28] MEDS ORDERED: METOCLOPRAMIDE HCL INJ 5 MG/ML 2 ML VIAL ONE (09:28)
[2024-04-28 09:32] LABS: Pregnancy Test, Urine Negative (Negative)
[2024-04-28] MEDS: LACTATED RINGER'S 1,000 ML IV SCH (09:34)
[2024-04-28] MEDS ORDERED: ACETAMINOPHEN 1000 MG/100 ML IV IV ONE (09:39)
--- NOTE | 2024-04-28 10:05 | Urology Progress Note ---
Date of Service April 28, 2024 Assessment & Plan (1) Enterococcus faecalis infection: (2) Pelvic pain: (3) Urinary tract infection: (4) Generalized anxiety disorder with panic attacks: (5) Adjustment disorder with anxiety: Plan Patient with resistant, persistent Enterococcus UTI and ongoing bothersome pelvic pain and discomfort. Patient independently assessed, examined, interviewed, and evaluated. Agree with note as above. Patient's vitals and labs were all reviewed. Pertinent values in the HPI and plan section. Imaging was reviewed interpreted by myself. Agree with read. Vitals were reviewed. Discussed findings extensively with patient and family. Reviewed with nurse practitioner as well as consulting physicians/team. Patient's complicated medical and surgical history was reviewed and summarized above. Patient's surgical, medical, social, and family history were all reviewed with pertinent values as above. Discussed patient's current diagnosis as well as concerns and issues. Reviewed different options moving forward. Discussed potential risks and benefits as well as possible options and concerns. Reviewed potential surgical options and interventions. Discussed potential issues and concerns related to intervention. Risk and benefits were discussed extensively with patient and any available family. Discussed potential risks related to anesthesia. Discussed risks of bleeding infection and injury. Risks and benefits discussed at length for procedure. These include bleeding, infection, injury to surrounding tissues or organs, and risks associated with anesthesia. Patient states understanding and agrees to proceed. Will sign consent and proceed. Will plan for cystoscopy with possible bilateral retrograde pyelograms possible biopsy possible fulguration possible resection possible dilation possible hydrodistention. Will plan to fully evaluate the lower urinary tracts as well as assess the ureters. Patient will likely need repeat CT scan while still admitted. Will likely need to finish out full course of doxycycline likely 10 to 14 days total. Can be transition to oral after the procedure. Will plan for final IV dose of doxycycline intraoperatively as patient has been having burning. Greater than 50 minutes involved in care evaluation clinical coordinating and planning and in interviewing and evaluation as well as setting up procedure. Reviewed extensively with patient and family today. Multiple questions answered. Extensive conversation preprocedure. Patient was agreeable to proceed. Admission and Anticipated Discharge Date Admission Date: April 26, 2024 Subjective Patient admitted with persistent, resistent enterococcus UTI with ongoing discomfort. Patient is afebrile. Has been undergoing supportive care and therapy with oral medications, IV medications, IV fluids, and oral intake. Is stable on therapy without considerable increase in pain or major issues. Has not developed severe vomiting or other issues. Has not experienced fever or chills. Has been tolerating oral medications. Is tolerating fluids. Has noticed some frequency and urgency. Has not had severe pain in the back and flank. Does have occasional burning and irritation. No severe episodes or major changes. Patient does not believe the passed a stone. Has not passed a large amount of blood or debris that may be the stone. Review of Systems Review of Systems: All systems reviewed & are unremarkable except as noted in HPI & below Physical Exam Physical Exam: General: Alert in no acute distress. HEENT: Normocephalic Atraumatic. Inspection normal. Cranial Nerves 2-12 Grossly intact. Normal inspection of face. Normal inspection of neck. Psychologic: Normal affect. Respiratory: Nonlabored. No use of accessory muscles. No tachypnea or dyspnea. Cardiovascular: No tachycardia Skin: [place] and Dry. No rashes or visible lesions. Extremities/Lymphatics: No edema Abdomen: Soft Non-distended. No rebound or guarding. Results & Data Vital Signs (Past 12 Hours) Vital Signs Temp Pulse Resp BP Pulse Ox O2 Del Method 04/28/24 09:26 36.8 C 84 16 146/98 H 98 Room Air 04/28/24 07:42 36.7 C 81 20 110/78 96 Room Air 04/28/24 07:30 Room Air PG Care Time/CCT Total # of Minutes Spent Total Time Spent with Patient: Total time spent is greater than 50% in coordination of care (as documented) at patient's floor/unit and/or counseling patient: Coding Level of Care Code 10546 SUB INP/OBS CARE 3/50MIN Diagnoses Enterococcus faecalis infection A49.8 Pelvic pain R10.2 Urinary tract infection N39.0 Urinary tract infection type: site unspecified Generalized anxiety disorder with panic attacks F41.1; F41.0 Adjustment disorder with anxiety F43.22 (3) Urinary tract infection Urinary tract infection type: site unspecified
[2024-04-28] MEDS: DIATRIZOATE MEGLUMINE 30% 100ML VIAL INSTIL ONE (10:42)
--- NOTE | 2024-04-28 10:50 | Operative Report ---
PG Post Operative Report Pre & Post Diagnosis Operation Date: 04/28/24 09:45 Pre-Op Diagnosis: (1) Urinary tract infection: (2) Enterococcus faecalis infection: Post-Op Diagnosis: (1) Urinary tract infection: (2) Enterococcus faecalis infection: I identified the patient and participated in the time-out.: Yes Procedure Operation Date: 04/28/24 09:45 Actual Procedures p Cystoscopy, Bilateral Retrograde Pyelograms, Hydrodistension - Tyler Westbrook DO Surgeon Tyler Westbrook, II, DO Admission Discharge Rn None Estimated Blood Loss 1 Findings Consistent with Post-Op Diagnosis Significant/severe inflammation of the urethra and bladder neck with areas of mild bleeding/irritation and increased vascularity around the bladder neck and proximal urethra. Significant hypervascularity throughout the bladder. After hydrodistention significant increase in hypervascularity as well as glomerulations. Terminal pinking on hydrodistention. 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 Specimens None Drains None Anesthesia Type MAC Complications none Disposition Disposition: Recovery Room Indications Patient with significant pelvic pain, increasing lower urinary tract issues, and recurrent UTIs with resistant bacteria. Risks and benefits discussed at length. Description of Procedure Patient was consented and brought back to the operating room. Patient was placed under anesthesia in the supine position and moved to the dorsal lithotomy position. Patient was prepped and draped in the regular sterile fashion. A time out was completed. Patient had been given dose of IV doxycycline and has been on the IV antibiotics since Wednesday. A 30degree Cystoscope was placed into the bladder and the entire bladder was examined. The UO's were identified. There was significant findings of the urethra with severe inflammation and irritation especially at the bladder neck. There was mild areas of bleeding. There was no severe ulceration. The tissue did appear to be largely inflamed. No significant stricture was discovered. The UOs were discovered bilaterally. A 5 Mongolian open-ended catheter was placed first on the left and then on the right. Approximately 8 cc of contrast were placed. The right ureter appeared to be clear with no major findings or abnormalities. The left ureter appeared to have a duplicated system. An additional 8 cc of contrast were then placed and the duplication was able to be better visualized. There was a partial duplication coming off of 2 possibly independent areas from the kidney conjoining at approximately the mid ureter. There was no severe hydronephrosis hydroureter or other major findings. The lower pole segment did appear to be a larger caliber first mildly dilated. Drainage films were taken after draining the bladder and reassessing. Did appear to have some mild pulling of contrast on the left side without major abnormality. The bladder was then fully inspected and no masses, lesions, or other areas of concern. Notable hypervascularity was noted throughout the bladder. There did appear to be some ongoing inflammation in the bladder neck but no signs of ulceration mass tumor lesion or other major area concern. No tumors or other areas concern. No signs of active or severe infection with the bladder. The bladder was then filled by gravity and underwent hydrodistention. This was completed to the cessation of the flow/drip through the tubing. The bladder was emptied. An anesthestized bladder volume was measured. The bladder was then once again inspected. No injuries or areas of concern. The Hydrodistention was then completed a second time following the same procedure with measurement of volume and assessment after. The bladder was then emptied. The scope was removed. The patient was cleaned, aroused from anesthesia, and transferred to the pacu in stable condition having tolerated the procedure well with no complications. I was present and participated in all aspects of the procedure. The patient will be monitored in the PACU until transferred. Patient will be transferred back to the floor and monitored. Will need to complete likely full course of doxycycline for persistent resistant Enterococcus infection. Patient had preoperatively been treated with doxycycline and had continued IV doxycycline. Will need to finalize workup with CT imaging. Will have patient monitor to see if she is able to tolerate the oral doxycycline with plans to follow-up in approximately 2 weeks for repeat PCR to confirm clearing of ongoing multi organism infection. I attest to the content of the Intraoperative Record and any orders documented therein. Any exceptions are noted below.
[2024-04-28] MEDS: OPTIRAY 320 100ml IV ONE (12:07)
--- NOTE | 2024-04-28 12:13 | Anesthesiology Progress Note ---
Date of Service April 28, 2024 Anesthesia Post Procedure Vital Signs Vital Signs: Temp Pulse Pulse Resp BP BP Pulse Ox 04/28/24 11:33 36.4 C L 04/28/24 11:25 68 16 121/68 98 04/28/24 11:15 67 16 112/74 96 04/28/24 11:05 69 16 110/71 100 04/28/24 10:56 36.2 C L 89 16 108/56 L 100 04/28/24 09:26 36.8 C 84 16 146/98 H 98 04/28/24 07:42 36.7 C 81 20 110/78 96 04/28/24 07:30 04/27/24 21:35 04/27/24 21:29 36.9 C 78 16 114/78 98 04/27/24 13:42 36.3 C L 83 18 121/83 100 O2 Del Method O2 Flow Rate 04/28/24 11:33 04/28/24 11:25 Room Air 04/28/24 11:15 Room Air 04/28/24 11:05 Oxymask 5 04/28/24 10:56 Oxymask 5 04/28/24 09:26 Room Air 04/28/24 07:42 Room Air 04/28/24 07:30 Room Air 04/27/24 21:35 Room Air 04/27/24 21:29 Room Air 04/27/24 13:42 Room Air Transfer of Care Handoff Completed per policy Notes Mental Status: alert / awake / arousable Patient Amnestic to Procedure: Yes Nausea / Vomiting: adequately controlled Pain: adequately controlled Airway Patency, RR, SpO2: stable & adequate BP & HR: stable & adequate Hydration State: stable & adequate Anesthetic Complications: no major complications apparent and Pt Satisfied with anesthetic care
[2024-04-28] MEDS: FAMOTIDINE/PF 20 MG/2 ML VIAL IV ONE (12:28)
[2024-04-28] MEDS: SCOPOLAMINE 1 MG/72 HR TDSY PATCH TD ONE (12:29)
[2024-04-28 13:01] VITALS: RESP 18
--- NOTE | 2024-04-28 13:02 | CT Scan Report ---
CT OF THE ABDOMEN AND PELVIS WITH AND WITHOUT CONTRAST HEMATURIA PROTOCOL CLINICAL HISTORY: Abdominal and pelvic discomfort. COMPARISON STUDY: CT of the abdomen and pelvis July 26, 2023. Fluoroscopic images from bilateral retr ograde pyelograms performed earlier today. TECHNIQUE: Unenhanced and split bolus phase imaging of the abdomen and pelvis was performed. Intraven ous injection of 94 cc of Optiray 320 IV was uneventful. Automated exposure control was utilized for the study. A dose lowering technique was utilized adhering to the principles of ALARA. CT DOSE: 2554.26 mGy.cm FINDINGS: Visualized portions of the lung bases are unremarkable. No pneumatosis, free air or portal venous gas is present. There are no renal, ureteral or bladder calculi. There is no hydronephrosis. T he left collecting system is partially duplicated. Subtle increased attenuation and urothelial thicke husam adjacent to the right renal pelvis is likely postprocedural. No fluid collection is present. No upper tract urothelial lesions are identified. There are no renal lesions. Bladder is suboptimally as sessed given incomplete opacification and underdistention. There is gas within the bladder that is re lated to recent procedure. Liver, spleen, adrenal glands and pancreas are unremarkable. Is no biliary ductal dilatation status post cholecystectomy. The appendix is normal. Caliber and wall thickness of small and large bowel are normal. IMPRESSION: 1. No urinary calculi, hydronephrosis or upper tract urothelial lesions. 2. Partially duplicated left collecting system. 3. Subtle increased attenuation and urothelial thickening adjacent to the right renal pelvis which is likely postprocedural. 4. Suboptimal evaluation of the bladder given incomplete opacification and underdistention. Gas withi n the bladder which is related to recent procedure. ACT 112: Negative or not required by law. Electronically signed by: Raymond Andrade M.D. 04/28/2024 12:59 PM
[2024-04-28 13:24] VITALS: BP 115/79; PULSE 64; TEMP 97.3; O2SAT 97
--- NOTE | 2024-04-28 13:25 | Discharge Summary ---
Discharge Summary Date of Service April 28, 2024 Principal Dx & Hospital Course #1 = Principal Diagnosis (1) UTI (urinary tract infection): Plan This is a 34 year old female with past medical history of OCD, ADHD, umbilical hernia, PTSD who presented to the ED referred by urology for a resistant strand of UTI. #UTI UC from 04/17 + for corynebacterium rigelii, enterococcus faecalis, allosardovia omnicolens, and Morganella morganii --> all sensitive to doxycycline. CBC/BMP stable. Patient tolerating IV doxycycline & IV Unasyn well. Transition to PO doxy for additional 12 days on discharge to complete 14 day course. s/p Cystoscopy w/ Yasmin 04/28 --> recs include full course of doxy for persistent resistant enterococcus infx & CTAP CTAP 04/28 -->no urinary calculi, hydronephrosis or upper tract urothelial lesions. Partially duplicated left collecting system. subtle increased attenuation & urothelial thickening adjacent to right renal pelvis which is likely postprocedural. supoptimal eval of bladder given incomplete opacification & underdistention. Gas within bladder which is related to recent procedure. Urology to arrange follow up in their clinic upon discharge. #Mental health Continue Buspirone & Guanfacine Psych consultation 04/27 - recs include continuing current medication & coping skills. #Chronic conditions: Hypothyroidism: Levothyroxine Recent TSH 04/18 WNL Patient discharged home 04/28. Admission HPI Per Admitting Provider This is a 34 year old female with past medical history of OCD, ADHD, umbilical hernia, PTSD who presented to the ED referred by urology for a resistant strand of UTI. The patient was seen and examined this evening. Patient reports that she has had UTI symptoms for the last 2 years. She has followed routinely with urology. She reports that within the last week her symptoms have worsened. She has used Azo to aide with her symptoms. Her biggest symptoms are urinary urgency and burning. She denies any hematuria. She denies any low back pain. She admits to discomfort in her suprapubic region. She denies nausea, vomiting, chest pain, shortness of breath. Denies any lower extremity edema. Scanned urine culture from 04/17 reveals patient grew Corynebacterium riegelii, enterococcus faecalis, allosardovia omnicolens, morganella morganii. The patient has a hx of intracranial HTN and is unable to have doxycycline. While in the ED, patient had CBC/BMP that appeared stable. She was started on Unasyn. Discharge Exam Constitutional WD/WN, vitals as above Eyes PERRL, conjunctivae normal, anicteric sclerae Respiratory breathing unlabored Cardiovascular well perfused Psychiatric A+Ox3, euthymic affect Discharge Plan Discharge Items Patient Disposition: Home - Self-Care Reason For Visit: UTI Discharge Diagnosis: UTI Activity: Resume your previous activity Non-emergency contact: Primary Care Provider and Urologist Call non-emergency contact if: you have any medication questions and your symptoms worsen Follow-up/Referrals: Desmond Rush CRNP [Primary Care Provider] - 05/05/24 8:20 am (Appointment will be with Enedina Prabhakar) Tyler Westbrook DO [Physician] - (office will call with an appointment date and time) Jason Lieberman PA-C [Physician Hospital Education Coordinator] - 05/11/24 8:00 am [facility],Nurse [FAKE FOR SCHEDULES] - 05/08/24 1:00 pm Diet: Regular Addtl Attending Provider Instructions: Ms. Vargas, You were recently hospitalized for an ongoing UTI and underwent a procedure with urology. Please see recommendations below regarding your discharge. 1. Please take Doxycycline for the next 12 days. Your first dose will be this evening 3/7 at home. Please take with food to avoid GI upset. 2. You may resume the remainder of your outpatient medications. 3. Urology will arrange a follow up with you on an outpatient 4. Please follow up with your PCP within 1-2 weeks of discharge. If you develop any worsening UTI symptoms including blood in urine, increased frequency/urgency, or low back pain please report back to the ER for further care. Sincerely, Fabiana Green PA-C Pending Studies at Discharge: Yes Studies:: biopsies from cystoscopy Stand-Alone Forms: [email or web address], Smoking Cessation Medications and DC Order Prescriptions: New doxycycline hyclate 100 mg capsule 100 mg PO BID Qty: 24 0RF Continued fluticasone propionate 50 mcg/actuation spray,suspension 2 spray intranasal DAILY Qty: 16 2RF Rx Instructions: administer into each nostril hydroxyzine HCl 25 mg tablet 25 mg PO HS PRN (Reason: anxiety, insomnia) Qty: 30 0RF Probiotic 3 billion cell capsule 3,000 mmu cells PO QDL Rx Instructions: administer with a meal cholecalciferol (vitamin D3) 50 mcg (2,000 unit) capsule 50 mcg PO QDL levothyroxine 150 mcg tablet 150 mcg PO QAM Medical Marijuana 1 dose inhalation DAILY PRN (Reason: ptsd) Patient Comments: "Dosed throughout the day" Rx Instructions: Vape ascorbic acid-zinc sulfate 100-200 mg Tablet 1 tab PO DAILY cranberry 500 mg Capsule 500 mg PO DAILY Rx Instructions: administer with meals buspirone 10 mg tablet 10 mg PO TID guanfacine 1 mg tablet extended release 24 hr 1 mg PO HS elderberry fruit 350 mg Capsule 350 mg PO DAILY Discharge Orders: Discharge Order (Routine); Ordered 04/28/24 Ordered By: Fabiana Gates/Other Patient Handouts: Cystoscopy Admission Data Admit Date/Time: 04/26/24 17:59 Attending Provider: Joseph Shea Admit Provider: Nikolay Sanchez Primary Care Provider: Desmond Rush Other Providers: Nikolay Sanchez; Horacio Miller; Eula Eric; Tyler Westbrook; Taniya Okeefe; Irina Chery; Lemuel Taylor; Yisel Mendez; Toño Gonzales; Jason Lieberman; Tariq Bah; Tala Webster; Lito Shaffer; Karlene Han; Deena Batista; Johnny Zelaya; Mallorie Bunn Other Interventions: Discharge Summary Assessment (RN) Last Done: 04/28/24 13:44 Hospital Stay Data Consultations 04/26/24 17:29 ED Decision to Admit Stat 04/26/24 18:00 Consult Urology Routine 04/27/24 07:45 Consult Psychiatry Routine Procedures Performed Operation Date: 04/28/24 09:45 Actual Procedures p Cystoscopy, Bilateral Retrograde Pyelograms, Hydrodistension(Not Applicable) - Tyler Westbrook DO Diagnostic Imagining Performed 04/28/24 07:01 CT Abd and Pelvis [CT abdomen pelvis wo/w con] Urgent Pending Results Patient Have Any Pending Studies at Discharge: Yes Discharge Instructions Given to Patient (Per Discharging Provider) Ms. Vargas, Fernando were recently hospitalized for an ongoing UTI and underwent a procedure with urology. Please see recommendations below regarding your discharge. 1. Please take Doxycycline for the next 12 days. Your first dose will be this evening 3/ at home. Please take with food to avoid GI upset. 2. You may resume the remainder of your outpatient medications. 3. Urology will arrange a follow up with you on an outpatient 4. Please follow up with your PCP within 1-2 weeks of discharge. If you develop any worsening UTI symptoms including blood in urine, increased frequency/urgency, or low back pain please report back to the ER for further care. Sincerely, Fabiana Green PA-C Total Time Total Time Spent Total Time Spent (In Minutes): 50 Total Time Includes: Examination of the Patient, Discharge Planning, Medication Reconciliation and Communication With Other Providers Coding Level of Care Code 74816 INP/OBS DISCH >30 MIN Diagnoses UTI (urinary tract infection) N39.0
== END 2024-04-28 14:03 | disposition home or self-care (01) | DRG 690 ==
LOC: ED 16:01 → SUATTDRO 17:59 → EDINP 17:59 → 3W 19:24